=== PATIENT | female | born 1990 | race Caucasian/White ===

== ENCOUNTER 2019-05-03 11:01 | Emergency (ER) | payer OTHER ==
[2019-05-03] MEDS ORDERED: Triamcinolone Acetonide 0.1% Crm 30 GM Tube ONE (11:45)
--- NOTE | 2019-05-03 11:55 | EDM.PDOC ---
ED HPI GENERAL MEDICAL PROBLEM - General Chief Complaint: Skin Complaint Stated Complaint: RASH Source of Information: Reports: Patient History Limitations: Reports: No Limitations - History of Present Illness INITIAL COMMENTS - FREE TEXT/NARRATIVE: dictated - Related Data Allergies Allergy/AdvReac Type Severity Reaction Status Date / Time Sulfa (Sulfonamide Allergy Cannot Verified 05/03/19 11:19 Antibiotics) Remember Home Meds: Home Meds Citalopram [Citalopram HBr] 20 mg PO DAILY 05/03/19 [History] Past Medical History HEENT History: Reports: None Musculoskeletal History: Reports: Fracture Psychiatric History: Reports: Anxiety - Past Surgical History HEENT Surgical History: Reports: Eye Surgery Musculoskeletal Surgical History: Reports: None Social & Family History - Tobacco Use Smoking Status *Q: Never Smoker - Recreational Drug Use Recreational Drug Use: No Course - Vital Signs Last Recorded V/S: Last Vital Signs Temp 36.9 C 05/03/19 11:20 Pulse 105 H 05/03/19 11:20 Resp 18 05/03/19 11:20 BP 120/74 05/03/19 11:20 Pulse Ox 98 05/03/19 11:20 Departure - Discharge Information Instructions: Rash Referrals: PCP,None [Primary Care Provider] - Forms: ED Department Discharge Additional Instructions: Apply Triamcinolone cream to affected areas 2-3 times a day. Take Benadryl as directed. Take Zyrtec/Cetrizine as directed. Take Zantac as directed. Follow up with primary provider if rash does not improve.
--- NOTE | 2019-05-07 07:36 | ER ---
DATE OF SERVICE: 05/03/2019 REASON FOR EMERGENCY ROOM VISIT: Skin rash. HISTORY: This previously healthy 28-year-old woman comes in with a 2-day history of an evolving skin rash. She noticed initially, approximately 2 days ago, that she developed what she thought were some insect bites around her lower legs that were mildly itchy, and this has intensified over the last 2 days. She noticed that these areas spread, while they initially started on her lower legs, they eventually spread up the inner aspect of her legs as high as the upper thighs, as well as a few scattered areas on her arm and involving the skin fold between her breasts. She has not had any fevers. She has not taken any new medications or applied any new lotions to her skin, etc. She has not been swimming lately. She has not stayed in hotels. She does live with her boyfriend, and he has not had any similar symptoms. She has not been outside a great deal lately and has not been working in the garden. MEDICATIONS: Reviewed. See EMR. ALLERGIES: SULFA. REVIEW OF SYSTEMS: Pertinent positives and negatives as listed in the HPI. She has had no fever or chills. PHYSICAL EXAMINATION: She has scattered areas where she has central vesicles surrounded by slightly raised erythema, and there is some mild evidence of excoriation from itching in some of these areas. She has a cluster of these just above her left ankle laterally and a couple of other areas where there seems to be 2 or 3 of them in a cluster. She has some areas where there is a very small vesicle and minimal erythema and other areas where there is more erythema, but the lesions are all generally less than 1 cm in diameter, except for areas where they are coalesced in a cluster. There is no oozing or weeping from these areas. IMPRESSION: Possible insect bites versus allergy to a plant allergen, even though she has not been outside or in the [place], etc. This does appear to be a mild allergic contact dermatitis type of rash. PLAN: I cannot be certain what the cause of the rash is, but a sensible approach in either case would be a moderate potency topical corticosteroid, such as 0.1% triamcinolone cream to be applied to the affected areas t.i.d. In addition to this, I recommended ranitidine over- the-counter as well as Zyrtec [id number] for the combined antihistamine effect. In the evening, she can try Benadryl to see if that makes any difference and would also help her to sleep. If the rash tends to significantly worsen anyway, she should return and be seen again. We did discuss the possibility of oral prednisone, but I do not think this rash is serious enough to warrant that kind of approach. She understands and agrees with this, all questions were answered. SOPHIE /[id number]
== END 2019-05-03 11:55 | disposition home or self-care (01) ==
LOC: LB.ED 11:01
DX: R21 Rash and other nonspecific skin eruption (principal); Z88.2 Allergy status to sulfonamides
CPT/HCPCS: 99282; A9270